=== PATIENT | female | born 1955 | race Two or more races ===

== ENCOUNTER 2018-04-27 10:57 | Emergency (ER) | payer OTHER ==
[~2018-04-27] VITALS: Ht 157.5 cm; Wt 61.2 kg
--- NOTE | 2018-04-27 11:10 | NUR ---
DARIA 889 FROM HOME FOR HEADACHE SINCE THIS AM, HIGH BP, TOOK LISINOPRIL AND CLONIDINE 1000. NAD NOTED, VSS, RESP EVEN AND UNLABORED, PT WAS PUT ON MONITOR, WAITING FOR MD HERRERA.
[2018-04-27] MEDS ORDERED: ENALAPRILAT DIHYD. (2.5MG/ML) 1.25 MG/ML VIAL IV ONE (11:18)
[2018-04-27 11:29] LABS: BASOPHILS % (AUTO) 0.9 % (0.0-2.0); EOSINOPHILS % (AUTO) 1.9 % (0.0-6.0); HEMATOCRIT 41 % (33-45); LYMPHOCYTES # (AUTO) 1.1 /CMM (0.8-4.8); LYMPHOCYTES % (AUTO) 28.8 % (20.0-44.0); MEAN CORPUSCULAR HGB CONC 34 g/dl (31.0-36.0); MEAN CORPUSCULAR VOLUME 82 fL (82-100); MONOCYTES # (AUTO) 0.3 /CMM (0.1-1.30); MONOCYTES % (AUTO) 6.5 % (2.0-12.0); NEUTROPHILS # (AUTO) 2.5 /CMM (1.8-8.9); NEUTROPHILS % (AUTO) 61.9 % (43.0-81.0); PLATELET COUNT (AUTO) 243 /CMM (150-450); RDW COEFFICIENT OF VARIATION 12.9 (11.5-15.0)
[2018-04-27] MEDS ORDERED: ENALAPRILAT INJ (1.25 MG/ML) 1.25 MG/ML VIAL IV PRN (11:30)
--- NOTE | 2018-04-27 11:39 | NUR ---
pt to ctscan
[2018-04-27 11:48] LABS: CALCIUM, SERUM 9.9 mg/dL (8.5-10.1); CARBON DIOXIDE 29 mmol/L (21-32); CHLORIDE 105 mmol/L (98-107); CREATININE 0.9 mg/dL (0.6-1.3); GLUCOSE 131 mg/dL (74-106); POTASSIUM 4.1 mmol/L (3.5-5.1); SODIUM SERUM 140 mmol/L (136-145); UREA NITROGEN, BLOOD 19 mg/dL (7-18)
[2018-04-27 11:50] LABS: INR 0.92 (0.85-1.15); TROPONIN I < 0.017 ng/mL (0.00-0.056)
[2018-04-27 11:53] LABS: ALANINE AMINOTRANSFERASE 26 U/L (12-78); ALBUMIN 3.8 g/dL (3.4-5.0); ALKALINE PHOSPHATASE 64 U/L (46-116); ASPARTATE AMINOTRANSFERASE 11 U/L (15-37); BILIRUBIN,DIRECT 0.1 mg/dL (0.0-0.2); BILIRUBIN,TOTAL 0.5 mg/dL (0.2-1.0); TOTAL PROTEIN, SERUM 7.8 g/dL (6.4-8.2)
--- NOTE | 2018-04-27 12:39 | NUR ---
IV removed. Catheter intact and site benign. Pressure and 4x4 applied to site. No bleeding noted.
--- NOTE | 2018-04-27 12:39 | NUR ---
Patient discharged to home in stable condition. Written and verbal after care instructions given. Patient verbalizes understanding of instruction.
[2018-04-27 12:40] VITALS: BP 131/76
== END 2018-04-27 12:41 | disposition home or self-care (01) ==
LOC: ER 10:58
DX: R42 Dizziness and giddiness (principal); I10 Essential (primary) hypertension
CPT/HCPCS: 36415; 70450-TC; 71045-TC; 80048-TC; 80076-TC; 84484-TC; 85025-TC; 85730-TC; A4606; J3490; Z7610